=== PATIENT | male | born 1985 | race Caucasian/White ===

== ENCOUNTER 2024-06-12 21:48 | Emergency (ER) | payer OTHER, SELFPAY ==
[2024-06-12 21:49] VITALS: BP 108/68; PULSE 76; RESP 18; TEMP 36.8; O2SAT 99; BMI 25.3
--- NOTE | 2024-06-12 22:18 | EKG12_ITS ---
Test Reason : NAUSEA/VOMITING Blood Pressure : */* mmHG Vent. Rate : 66 BPM Atrial Rate : 66 BPM P-R Int : 176 ms QRS Dur : 96 ms QT Int : 390 ms P-R-T Axes : 74 123 44 degrees QTcB Int : 408 ms Normal sinus rhythm Left posterior fascicular block Abnormal ECG Confirmed by ALCIDES ROBLES, NEFTALI ([id number]), assistant film editor TIMI VILLANUEVA ([id number]) on 06/19/2024 6:52:46 AM Referred By: DORIE Confirmed By: NEFTALI MCGRATH MD
--- NOTE | 2024-06-12 22:18 | EX.ED.DYSGE1 ---
HPI History of Present Illness Chief Complaint: Nausea/Vomiting/Diarrhea Informant: patient and parent Narrative Narrative: Healthy 38-year-old male started having nonbloody vomiting and watery diarrhea about 5 or 6 hours ago. His and children have had the same thing within the last couple weeks, children currently before, she was admitted to the hospital diagnosed with norovirus at that time. He has been having some mild abdominal cramping and goes away after diarrhea. Just prior to coming to the hospital, he was on the toilet having diarrhea and passed out while he was having a bowel movement, falling off and hitting his forehead on the floor. He denies any significant headache or focal neurologic symptoms, his major symptoms are feeling poorly and dehydrated from all of the vomiting and diarrhea he has had. [facility] Medical History Seasonal allergies Home Medications ?Medication ?Instructions ?Recorded ?Last Taken ?Type ondansetron 8 mg disintegrating 8 mg PO Q8H PRN nausea and 06/12/24 Unknown Rx tablet vomiting #20 tabs Allergy/AdvReac Type Severity Reaction Status Date / Time No Known Allergies Allergy Verified 06/12/24 21:48 Social History Smoking Status: Never smoker alcohol intake: never ROS ROS ED Constitutional Constitutional ED: Reports malaise and weakness; Denies chills or fever(s) Eyes Eyes: Denies change in vision or diplopia ENT ENT ED: Denies rhinorrhea or sore throat Cardiovascular Cardiovascular: Reports syncope; Denies chest pain or palpitations Respiratory/Chest Respiratory/Chest: Denies cough or dyspnea Gastrointestinal Gastrointestinal: Reports abdominal pain, diarrhea, nausea and vomiting; Denies hematemesis or hematochezia Genitourinary Genitourinary ED: Denies dysuria or hematuria Musculoskeletal Musculoskeletal: Denies back pain or neck pain Integumentary Reports Abrasions; Denies abscess or rash Neurologic Neurologic: Denies headache(s), paresthesias or weakness Psychiatric Psychiatric: Denies anxiety or suicidal thoughts EXAM Physical Exam Const Vital Signs: 06/12/24 21:49 06/12/24 22:08 Temperature 98.2 F Temperature Source Oral Pulse Rate 76 Respiratory Rate 18 Respiratory Effort Normal Non-Labored Respiratory Pattern Normal Blood Pressure 108/68 Blood Pressure Mean 81 Pulse Ox 99 Oxygen Delivery Method Room Air Positive well nourished and well developed Constitutional Narrative: Appears malaised but no distress General Appearance ED: well developed and NAD HEENT Reports moist mucous membranes HEENT Narrative: Abrasion with minor contusion mid forehead, mildly tender, no crepitance or depression or boggy hematoma. No other signs of trauma. No Diggs sign no CSF otorhinorrhea, no raccoon eyes or other facial trauma/tenderness, no hemotympanum. normocephalic and trauma Eyes PERRL and EOMs intact bilaterally Neck full ROM and supple Resp normal respiratory effort and clear to auscultation bilaterally Cardio regular rate, regular rhythm and no murmurs Rate: other Other Details: Heart rate 60s GI non-tender and non-distended Auscultation: normoactive bowel sounds Palpation: soft Back/Spine no CVA tenderness General Back: other FROM Extremity normal to inspection General Extremety ED: Negative for edema, pulses abnormal or tenderness General Extremity: Negative for edema or pulses abnormal Neuro oriented x3, CN's II-XII intact bilaterally and no sensory deficits noted Sensorium / Orientation: awake and alert Motor Exam: strength 5/5 throughout Psych mental status grossly normal Skin no rashes or lesions noted and no wounds Skin Narrative: Forehead abrasion no other rashes or signs of injury. MDM MDM MDM Narrative Medical decision making narrative: Labs obtained while we gave him a liter of IV fluids, Zofran, and oral Imodium which she was able to keep down along with water after the Zofran. He felt a lot better after getting that in the IV fluids. His labs are noted, his high hemoglobin is likely a consequence of him being a healthy 38-year-old male as well as hemoconcentration from some dehydration. The same may be true with his white blood count although norovirus can do this as well. He does appear to be mildly dehydrated according to his renal function. I do not think he needs to be admitted because of it. Since he is doing much better keeping down oral fluids, I think discharging him home with a prescription for Zofran is reasonable and he is in agreement. We discussed reasons to return. Lab Data Attestation: I reviewed the patient's lab results. Labs: Laboratory Results - last 24 hr 06/12/24 22:20 WBC 15.3 H RBC 6.14 Hgb 19.2 H* Hct 55.3 H MCV 90.1 MCH 31.3 MCHC 34.7 RDW Std Deviation 42.4 RDW Coeff of Herberth 12.9 Plt Count 218 MPV 9.7 Immature Gran % (Auto) 0.400 Neut % (Auto) 92.8 H Lymph % (Auto) 2.9 L Nolan % (Auto) 3.4 Eos % (Auto) 0.2 Baso % (Auto) 0.3 Absolute Neuts (auto) 14.2 H Absolute Lymphs (auto) 0.44 L Nucleated RBC % 0 Differential Comment SEECOMMENT Diff Path Review May foll Platelet Estimate ADEQUATE RBC Morphology N CHROM Anisocytosis RARE Macrocytosis RARE Sodium 138 Potassium 4.4 Chloride 105 Carbon Dioxide 25.0 Anion Gap 9 BUN 23 H Creatinine 1.53 H Estim Creat Clear Calc 77.47 Est GFR (MDRD) Af Amer 65 Est GFR (MDRD) Non-Af 54 L BUN/Creatinine Ratio 15.0 Glucose 141 H Calcium 9.7 Rhythm Strip Rhythm Strip: Sinus Rhythm Rate: 65 Ectopy: None EKG Initial EKG: Attestation: I personally reviewed and interpreted this EKG as follows: Interpretation: Sinus Rhythm and No Acute Injury Pattern Comments: Nml axis & intervals; nml EKG Discharge Plan Triage Chief Complaint: Nausea/Vomiting/Diarrhea Other Complaint: Syncope ED Provider: Tyree Farfan Dx/Rx/DC Orders Clinical Impression: Gastroenteritis due to norovirus, Mild dehydration Instructions: Viral Gastroenteritis, Understanding Norovirus Prescriptions: New ondansetron 8 mg tablet,disintegrating 8 mg PO Q8H PRN (Reason: nausea and vomiting) Qty: 20 0RF Primary Care Provider: Care Physician,No Primary Referrals: Doctor,Your [Non-Staff] - 1 Week if not improving (or may return to ER as needed) Print Language: [place] Disposition Disposition: Home, Self Care
[2024-06-12] MEDS: Ketorolac 30 MG/ML Syringe IV (22:34)
[2024-06-12] MEDS: Loperamide 2 MG Capsule 4 MG PO (22:34)
[2024-06-12] MEDS: 0.9% Normal Saline (1000mL) 1,000 ML 999 ML IV (22:34)
[2024-06-12] MEDS: Ondansetron 4 MG/2 ML Vial IV (22:34)
[2024-06-12 22:41] LABS: Absolute Lymphocyte Count 0.44 X10^3/uL (0.83-4.51); Absolute Neutrophil Count 14.2 X10^3/uL (2.0-7.7); Basophil# 0.04 X10^3/uL; Basophil% 0.3 % (0-1); Eosinophil# 0.03 X10^3/uL; Eosinophils% 0.2 % (0-5); Hematocrit 55.3 % (40-54); Lymphocyte # 0.44 X10^3/ul (0.83-4.51); Lymphocyte % 2.9 % (19-41); Mean Corp Hgb Conc 34.7 g/dL (32-36); Mean Corpuscular Hgb 31.3 pg (27.0-32.0); Mean Corpuscular Volume 90.1 fL (80-94); Mean Platelet Vol. 9.7 fl (6.2-12.0); Monocyte# 0.52 X10^3/uL; Monocyte% 3.4 % (0-10); NRBC Flagged by Analyzer 0 % (0-5); Neutrophil # 14.18 X10^3/uL (2.7-7.7); Neutrophil % 92.8 % (47-70); POSITIVE DIFFERENTIAL YES; Platelet Count 218 K/mm3 (150-450); RBC Distribution Width CV 12.9 % (11.6-14.6); RBC Distribution Width SD 42.4 fl (35.1-43.9); Red Blood Count 6.14 M/mm3 (4.6-6.2); White Blood Count 15.3 K/mm3 (4.4-11.0)
[2024-06-12 22:51] LABS: Anion Gap 9 (5-15); BUN 23 mg/dL (7-18); Calcium,Total 9.7 mg/dL (8.5-10.1); Chloride 105 mmol/L (98-107); Creatinine, Serum 1.53 mg/dL (0.70-1.30); EST Glomerular Filtration Rate 54 mL/min (>60); Est Glom Filt Rate - Afr Amer 65 mL/min (>60); Estimated Creatinine Clearance 77.47 ml/min; Glucose 141 mg/dL (74-106); Potassium 4.4 mmol/L (3.5-5.1); Sodium Level 138 mmol/L (136-145)
[2024-06-12 22:57] LABS: Differential Indicated SCAN CRITERIA MET; Hemoglobin 19.2 g/dL (13.0-16.5)
[2024-06-12 23:09] LABS: Anisocytosis RARE; Differential Comment SEECOMMENT; Macrocytosis RARE; Platelet Estimate ADEQUATE (ADEQ); Red Cell Morphology N CHROM NORMAL (NORM C&C)
[2024-06-12 23:30] VITALS: BP 114/79; PULSE 66; RESP 18; TEMP 36.6; O2SAT 100
[2024-06-13 11:50] LABS: Pathologist Review Reviewed
== END 2024-06-12 23:31 | disposition home or self-care (01) ==
PROVIDERS: Emergency Provider Emergency Medicine; Visit Provider Emergency Medicine
DX: A08.11 Acute gastroenteropathy due to Norwalk agent (principal); E86.0 Dehydration
CPT/HCPCS: 80048; 85025; 93005; 96361; 96374; 96375; 99284; A4216; J2405